=== PATIENT | female | born 1965 | race Caucasian/White ===

== ENCOUNTER 2019-02-10 12:19 | Inpatient (IN) | payer BC ==
--- NOTE | 2019-02-10 13:31 | ED ---
Lower Extremity Injury HPI - General Chief Complaint: Extremity Injury, Lower Stated Complaint: Poss blood clot Time Seen by Provider: 02/10/19 12:33 Source: patient, RN notes reviewed, old records reviewed Mode of arrival: ambulatory Limitations: no limitations - History of Present Illness Initial Comments: Patient is a 53-year-old female presents emergency department today for evaluation with complaints of left leg pain and swelling. Patient reports that she fell proximal 2 weeks ago. At that time she suffered from an abrasion over her left knee, had some subsequent bruising. Call Patient states that she returned home from a flight from [place] after injuring her leg. She is concerned for possibility of a blood clot. She has had a prior PE before due to being on control pills. She is on any blood thinners at this time. She states that she is concerned that she's noticed some swelling spread to the ankle. Patient denies any chest pain or shortness of breath. Patient reports that today and last night she seemed to have increasing pain from behind in the upper thigh. - Related Data Allergies Allergy/AdvReac Type Severity Reaction Status Date / Time albuterol Allergy Unknown Verified 02/10/19 12:30 almond Allergy Unknown Verified 02/10/19 12:30 aspirin Allergy Unknown Verified 02/10/19 12:30 carrot Allergy Unknown Verified 02/10/19 12:30 heller Allergy Unknown Verified 02/10/19 12:30 [place] And Derivatives Allergy Unknown Verified 02/10/19 12:30 [[place]] ibuprofen [From Motrin] Allergy Unknown Verified 02/10/19 12:30 Iodinated Contrast- Oral and Allergy Unknown Verified 02/10/19 12:30 IV Dye Iodine and Iodide Containing Allergy Unknown Verified 02/10/19 12:30 Produc peanut Allergy Unknown Verified 02/10/19 12:30 Penicillins Allergy Unknown Verified 02/10/19 12:30 shellfish derived Allergy Unknown Verified 02/10/19 12:30 soy Allergy Unknown Verified 02/10/19 12:30 Sulfa (Sulfonamide Allergy Unknown Verified 02/10/19 12:30 Antibiotics) sulfite Allergy Unknown Verified 02/10/19 12:30 corn AdvReac Unknown Verified 02/10/19 12:30 Review of Systems ROS Statement: Those systems with pertinent positive or pertinent negative responses have been documented in the HPI. ROS Other: All systems not noted in ROS Statement are negative. Past Medical History Past Medical History: Asthma, GERD/Reflux, Pulmonary Embolus (PE) History of Any Multi-Drug Resistant Organisms: None Reported Past Surgical History: Appendectomy, Tonsillectomy Past Psychological History: No Psychological Hx Reported Smoking Status: Never smoker Past Alcohol Use History: Daily Past Drug Use History: None Reported General Exam - General Exam Comments Initial Comments: 33-year-old female. Alert and oriented. No distress. Limitations: no limitations General appearance: alert, in no apparent distress Head exam: Present: atraumatic, normocephalic, normal inspection Eye exam: Present: normal appearance, PERRL, EOMI. Absent: scleral icterus, conjunctival injection, periorbital swelling ENT exam: Present: normal exam, mucous membranes moist Neck exam: Present: normal inspection Respiratory exam: Present: normal lung sounds bilaterally. Absent: respiratory distress, wheezes, rales, rhonchi, stridor Cardiovascular Exam: Present: regular rate, normal rhythm, normal heart sounds. Absent: systolic murmur, diastolic murmur, rubs, gallop, clicks GI/Abdominal exam: Present: soft, normal bowel sounds. Absent: distended, tenderness, guarding, rebound, rigid Extremities exam: Present: normal inspection, full ROM, normal capillary refill. Absent: tenderness, pedal edema, joint swelling, calf tenderness Left Elbow exam: Present: normal inspection, tenderness Left Knee exam: Present: full ROM. Absent: normal inspection (Patient has an abrasion over the left knee. Covered with bandage. Evidence of ecchymosis extending over the anterior lower leg measuring 3 cm x 4 cm.) Lower Leg exam: Present: normal inspection, full ROM Ankle exam: Present: normal inspection, full ROM, swelling (She has 1+ pitting edema of the left lower leg. Bruising noted over the lateral malleolus.) Neurovascular tendon exam: Present: no vascular compromise Gait: observed and normal Back exam: Present: normal inspection Neurological exam: Present: alert, oriented X3, CN II-XII intact Psychiatric exam: Present: normal affect, normal mood Skin exam: Present: warm, dry, intact, normal color. Absent: rash Course Vital Signs 02/10/19 02/10/19 12:23 15:25 Temperature 97.9 F Pulse Rate 74 89 Respiratory 16 20 Rate Blood Pressure 125/79 116/78 O2 Sat by Pulse 97 99 Oximetry - Reevaluation(s) Reevaluation #1: 02/10/19 14:24 At this time informed Patient that she has positive DVT. She states that she has been having some chest pain and shortness of breath today. This will have to skin the Patient for CT PE. Medical Decision Making - Medical Decision Making Patient's 53-year-old female traveling here from [place] a motor home, with recent travel history from [place] on flight. She complains of left leg pain and swelling. She had a fall 2 weeks ago causing onset of left leg pain. Patient had Doppler ultrasound which is positive for DVT. Patient was reevaluated did state that she was having some occasional shortness of breath and chest pain today. She denies any specific pain at this time. Discussed that there is st ill concern for PE. Patient had an IV established, and CT image her chest is completed. There is evidence of multiple small pulmonary emboli within the right lower lobe. No concern for heart strain. Vital signs are stable. Patient was started on high intensity heparin. Denies any concern for rectal bleeding. Patient case discussed with Dr. Maynard. Patient will be admitted at this time with high intensity heparin. She is traveling back home to [place] after discharge. - Lab Data Result diagrams: 02/10/19 14:57 02/10/19 14:57 Lab Results 02/10/19 02/10/19 02/10/19 Range/Units 14:57 14:57 14:57 WBC 8.9 (3.8-10.6) k/uL RBC 5.00 (3.80-5.40) m/uL Hgb 14.6 (11.4-16.0) gm/dL Hct 45.3 (34.0-46.0) % MCV 90.5 (80.0-100.0) fL MCH 29.3 (25.0-35.0) pg MCHC 32.3 (31.0-37.0) g/dL RDW 13.1 (11.5-15.5) % Plt Count 332 (150-450) k/uL Neutrophils % 54 % Lymphocytes % 34 % Monocytes % 6 % Eosinophils % 3 % Basophils % 1 % Neutrophils # 4.8 (1.3-7.7) k/uL Lymphocytes # 3.0 (1.0-4.8) k/uL Monocytes # 0.6 (0-1.0) k/uL Eosinophils # 0.3 (0-0.7) k/uL Basophils # 0.1 (0-0.2) k/uL PT 9.7 (9.0-12.0) sec INR 0.9 (<1.2) APTT 22.5 (22.0-30.0) sec Sodium 142 (137-145) mmol/L Potassium 4.4 (3.5-5.1) mmol/L Chloride 108 H (98-107) mmol/L Carbon Dioxide 28 (22-30) mmol/L Anion Gap 6 mmol/L BUN 12 (7-17) mg/dL Creatinine 0.94 (0.52-1.04) mg/dL Est GFR (CKD-EPI)AfAm 79 (>60 ml/min/1.73 sqM) Est GFR (CKD-EPI)NonAf 69 (>60 ml/min/1.73 sqM) Glucose 90 (74-99) mg/dL Calcium 9.8 (8.4-10.2) mg/dL Total Bilirubin 0.5 (0.2-1.3) mg/dL AST 38 H (14-36) U/L ALT 34 (9-52) U/L Alkaline Phosphatase 90 (38-126) U/L Troponin I (0.000-0.034) ng/mL Total Protein 7.1 (6.3-8.2) g/dL Albumin 4.1 (3.5-5.0) g/dL 02/10/19 Range/Units 14:57 WBC (3.8-10.6) k/uL RBC (3.80-5.40) m/uL Hgb (11.4-16.0) gm/dL Hct (34.0-46.0) % MCV (80.0-100.0) fL MCH (25.0-35.0) pg MCHC (31.0-37.0) g/dL RDW (11.5-15.5) % Plt Count (150-450) k/uL Neutrophils % % Lymphocytes % % Monocytes % % Eosinophils % % Basophils % % Neutrophils # (1.3-7.7) k/uL Lymphocytes # (1.0-4.8) k/uL Monocytes # (0-1.0) k/uL Eosinophils # (0-0.7) k/uL Basophils # (0-0.2) k/uL PT (9.0-12.0) sec INR (<1.2) APTT (22.0-30.0) sec Sodium (137-145) mmol/L Potassium (3.5-5.1) mmol/L Chloride (98-107) mmol/L Carbon Dioxide (22-30) mmol/L Anion Gap mmol/L BUN (7-17) mg/dL Creatinine (0.52-1.04) mg/dL Est GFR (CKD-EPI)AfAm (>60 ml/min/1.73 sqM) Est GFR (CKD-EPI)NonAf (>60 ml/min/1.73 sqM) Glucose (74-99) mg/dL Calcium (8.4-10.2) mg/dL Total Bilirubin (0.2-1.3) mg/dL AST (14-36) U/L ALT (9-52) U/L Alkaline Phosphatase (38-126) U/L Troponin I <0.012 (0.000-0.034) ng/mL Total Protein (6.3-8.2) g/dL Albumin (3.5-5.0) g/dL - Radiology Data Radiology results: report reviewed This examination is positive for DVT within the posterior tibial veins. Negative tib-fib x-ray. Disposition Clinical Impression: DVT (deep venous thrombosis), Pulmonary embolism Disposition: ADMITTED IP TO THIS [facility] Condition: Stable Is patient prescribed a controlled substance at d/c from ED?: No Referrals: Nonstaff,Physician [Primary Care Provider] - 1-2 days Time of Disposition: 16:47
--- NOTE | 2019-02-10 13:37 | US ---
EXAMINATION TYPE: US venous doppler duplex LE LT DATE OF EXAM: 02/10/2019 1:26 PM COMPARISON: NONE CLINICAL HISTORY: Pain. Pt states left leg pain and swelling, recent plane ride, pt states history of PE, currently not on blood thinners SIDE PERFORMED: Left TECHNIQUE: The lower extremity deep venous system is examined utilizing real time linear array sonog amadeo with graded compression, doppler sonography and color-flow sonography. VESSELS IMAGED: External Iliac Vein (EIV) Common Femoral Vein Deep Femoral Vein Greater Saphenous Vein * Femoral Vein Popliteal Vein Small Saphenous Vein * Proximal Calf Veins (* superficial vessels) Left Leg: Positive for DVT within left PTV near ankle at area of pt's pain and swelling No popliteal fossa lesion is seen. IMPRESSION: THIS EXAMINATION IS POSITIVE FOR DVT WITHIN THE POSTERIOR TIBIAL VEINS.
--- NOTE | 2019-02-10 14:06 | XR ---
EXAMINATION TYPE: XR tibia fibula LT DATE OF EXAM: 02/10/2019 COMPARISON: NONE HISTORY: Pain TECHNIQUE: 2 views FINDINGS: I see no fracture nor dislocation. Knee joint and ankle joint appear anatomic. Soft tissues appear normal. IMPRESSION: Negative left tibia and fibula exam.
[2019-02-10] MEDS ORDERED: FAMOTIDINE 20 MG/2 ML VIAL IV STA (14:22)
[2019-02-10] MEDS ORDERED: diphenhydrAMINE 50 MG/ML 1 ML VIAL IVP STA (14:22)
[2019-02-10] MEDS ORDERED: methylPREDNISolone SOD SUCCI 125 MG/2 ML VIAL IV STA (14:22)
[2019-02-10] MEDS ORDERED: SODIUM CHLORIDE 0.9% 1,000 ML IV ONE (14:23)
[2019-02-10 15:12] LABS: Basophils # (A) 0.1 k/uL (0-0.2); Basophils % (A) 1 %; Eosinophils # (A) 0.3 k/uL (0-0.7); Eosinophils % (A) 3 %; HCT 45.3 % (34.0-46.0); HGB 14.6 gm/dL (11.4-16.0); Lymphocytes % (A) 34 %; MCH 29.3 pg (25.0-35.0); MCHC 32.3 g/dL (31.0-37.0); MCV 90.5 fL (80.0-100.0); Mean Platelet Volume 6.4; Monocytes # (A) 0.6 k/uL (0-1.0); Monocytes % (A) 6 %; Neutrophils # (A) 4.8 k/uL (1.3-7.7); Neutrophils % (A) 54 %; Platelet Count 332 k/uL (150-450); RDW 13.1 % (11.5-15.5); WBC 8.9 k/uL (3.8-10.6)
[2019-02-10] MEDS: SODIUM CHLORIDE 0.9% 1,000 ML IV SCH ×2 (15:20→23:10)
[2019-02-10 15:22] LABS: INR 0.9 (<1.2); Partial Thromboplastin Time 22.5 sec (22.0-30.0); Prothrombin Time 9.7 sec (9.0-12.0)
[2019-02-10 15:29] LABS: Albumin 4.1 g/dL (3.5-5.0); Calcium 9.8 mg/dL (8.4-10.2); Potassium 4.4 mmol/L (3.5-5.1); Total Bilirubin 0.5 mg/dL (0.2-1.3); Total Protein 7.1 g/dL (6.3-8.2)
[2019-02-10] MEDS ORDERED: HEPARIN SODIUM,PORCINE 5,000 UNIT/ML 1 ML VIAL IV PRN (16:27)
[2019-02-10] MEDS ORDERED: HEPARIN SODIUM,PORCINE 10,000 UNIT/ML 1 ML VIAL IV ONE (16:27)
--- NOTE | 2019-02-10 16:35 | CT ---
EXAMINATION TYPE: CT chest angio for PE DATE OF EXAM: 02/10/2019 COMPARISON: None HISTORY: Short of breath CT DLP: mGycm Automated exposure control for dose reduction was used. CONTRAST: CT Chest for pulmonary embolism performed with , patient injected with mL of . The contrast was Isovue 100 mL. There are 3-D post processed images. FINDINGS: The lungs are clear of infiltrate. There is no evidence of a pulmonary mass. There is no pleural effu anahi. There is no mediastinal adenopathy. Thoracic aorta is intact without evidence of aneurysm or di ssection. There is no pericardial effusion. There are filling defects in the right lower lobe pulmonary artery. The bony thorax is intact. Upper abdominal soft tissues are intact. There is small hiatal hernia. IMPRESSION: Multiple small right lower lobe pulmonary emboli. This exam was discussed with the emergency room dario gilbert at 4:20 PM.
[2019-02-10] MEDS ORDERED: NALOXONE 0.4 MG/ML 1 ML VIAL IV PRN (16:51)
[2019-02-10] MEDS ORDERED: oxyCODONE-APAP 5-325MG 1 EACH TAB PO PRN (16:51)
[2019-02-10] MEDS ORDERED: IBUPROFEN 400 MG TAB PO PRN (16:51)
[2019-02-10] MEDS ORDERED: ONDANSETRON 4 MG/2 ML VIAL IVP PRN (16:51)
[2019-02-10] MEDS ORDERED: HYDROcodone/APAP 5-325MG 1 EACH TAB PO PRN (16:51)
[2019-02-10] MEDS ORDERED: ACETAMINOPHEN TAB 325 MG TAB PO PRN (16:51)
[2019-02-10] MEDS: HEPARIN SOD,PORK IN 0.45% NACL 25,000 UNIT in 0.45% NACL 1 250ML.BAG IV SCH (17:00)
[2019-02-10] MEDS ORDERED: LEVALBUTEROL INHALATION PRN (17:36)
[2019-02-10] MEDS ORDERED: ALPRAZolam 0.25 MG TAB PO PRN (17:37)
[2019-02-10] MEDS ORDERED: TEMAZEPAM 15 MG CAP PO PRN (17:37)
[2019-02-10] MEDS: FLUTICASONE 44 MCG INHALER INHALATION SCH (21:04)
[2019-02-10 22:22] VITALS: BMI 32.2
[2019-02-11 06:41] LABS: Basophils % (A) 0 %; Eosinophils % (A) 0 %; HCT 41.2 % (34.0-46.0); HGB 13.1 gm/dL (11.4-16.0); Lymphocytes # (A) 1.7 k/uL (1.0-4.8); Lymphocytes % (A) 12 %; MCH 28.8 pg (25.0-35.0); MCHC 31.7 g/dL (31.0-37.0); MCV 90.9 fL (80.0-100.0); Mean Platelet Volume 6.9; Monocytes # (A) 0.4 k/uL (0-1.0); Monocytes % (A) 3 %; Neutrophils # (A) 11.7 k/uL (1.3-7.7); Neutrophils % (A) 84 %; Platelet Count 292 k/uL (150-450); RBC 4.54 m/uL (3.80-5.40); RDW 14.1 % (11.5-15.5); WBC 13.9 k/uL (3.8-10.6)
--- NOTE | 2019-02-11 06:45 | HP ---
HISTORY AND PHYSICAL DATE OF SERVICE: 02/10/2019 CHIEF COMPLAINT: Shortness of breath and pulmonary embolism. HISTORY OF PRESENT ILLNESS: This 53-year-old woman with a past medical history of multiple medical problems including history of asthma, GERD, pulmonary embolism, history of right ovarian surgery, being followed by primary physician in the [place] area actually was attending a wedding in [facility]. The patient was noted to have left leg pain and swelling and the patient also had some shortness of breath. The patient came to [facility] and was admitted for further evaluation and treatment. Of note, the patient was in [place] about 2 weeks ago and fell at the [place] and had abrasion below the left knee, which is rather improving according to her. Patient had an 11 hour flight home from [place] during that time. Currently the patient drove to [place] from [place] taking 2 days. The patient was admitted for further evaluation and treatment and the ER evaluation showed normal CBC. However, EKG was done which showed no acute abnormality and the patient had venous Doppler which showed DVT of the posterior tibial vein on the left leg and a chest CT was also done which showed multiple small right lower lobe pulmonary emboli as well. Patient admitted for further evaluation and treatment. Patient admitted after starting heparin. There is no history of fever, rigors. No history of headache, loss of consciousness, seizures. PAST MEDICAL HISTORY: History of asthma, GERD, pulmonary embolism, hypothyroidism, right ovarian tumor. MEDICATION: Home medications are: 1. Xopenex HFA 1 puff q.6h p.r.n. 2. Prilosec OTC 20 mg. 3. Vitamin D3 2000 daily. 4. Zyrtec 10 mg daily. 5. QVAR 40 mcg 2 puffs b.i.d. ALLERGIES: ALBUTEROL, ALMOND, ASPIRIN, CITRUS, IBUPROFEN, IODINATED CONTRAST DYES, PEANUT, PENICILLIN, SHELLFISH, SOY, SULFA, SULFITE CORN. FAMILY HISTORY: No history of heart disease or strokes in the family. Both parents had blood clots, but possibly after cancer diagnosis. SOCIAL HISTORY: No history of smoking. No history of alcohol intake. REVIEW OF SYSTEMS: ENT: No diminished vision. No diminished hearing. CARDIOVASCULAR system: As mentioned earlier. RESPIRATORY: As mentioned earlier. GI no nausea or vomiting. no dysuria. NERVOUS SYSTEM: No numbness or weakness. ALLERGY/IMMUNOLOGY: No history of asthma or hayfever. MUSCULOSKELETAL: As mentioned earlier. HEMATOLOGY/ONCOLOGY: As mention earlier. ENDOCRINE: No history of diabetes or hypothyroidism. CONSTITUTIONAL: As mentioned earlier. DERMATOLOGY: Negative. RHEUMATOLOGY negative. PSYCHIATRY as mentioned earlier. PHYSICAL EXAMINATION: GENERAL: Alert and oriented x3. VITAL SIGNS: Pulse is 75, blood pressure 120/72, respiration 18, temperature 98.2, pulse ox 98% on room air. HEENT is conjunctivae normal. Oral mucosa moist. NECK is no jugular venous distention. No carotid bruit. No lymph node enlargement. CARDIOVASCULAR system: S1, S2. No S3, no S4. RESPIRATORY: Breath sounds diminished in the bases. A few scattered rhonchi. No crackles. ABDOMEN: Soft, obese, nontender. No mass palpable. LEGS: Left leg swelling and edema present. Minimal tenderness also in the calf area present. Also there is an abrasion below the left knee which is healing at this time. NERVOUS SYSTEM: Higher functions as mentioned earlier. Moves all 4 limbs. No focal motor or sensory deficits. LYMPHATICS: No lymph nodes palpable in the neck, axillae or groin. SKIN as mentioned. JOINTS: No active deforming arthropathy. LABS: At this time, WBC 8.2, hemoglobin 14.6. APTT less than 200 otherwise. Chest x-ray personally reviewed. EKG noted. Otherwise CTA and tibia x-ray was also noted. ASSESSMENT: 1. Acute deep vein thrombosis of the left leg, with acute pulmonary embolus on the right side on IV heparin. 2. History of previous pulmonary embolism. 3. History of asthma. 4. Gastroesophageal reflux disease. 5. History of hypothyroidism. 6. History of right ovarian surgery. 7. Appendectomy. 8. Tonsillectomy. 9. Heparin monitoring. RECOMMENDATIONS AND DISCUSSION: This 53-year-old woman who presented with multiple complex medical issues, we will monitor the patient closely. Continue the current medications, continue symptomatic treatment. We will initiate IV heparin. Otherwise, I would also recommend resume the home medications. Symptomatic treatment will be provided. We will also obtain Hematology/Oncology and Pulmonary consultations. The prognosis guarded because of multiple complex medical issues. Further recommendations to follow. The patient has taken Coumadin previously. The patient also had some insurance issues as well. I would recommend the case supervisor to look into the possibility of anticoagulants such as either Xarelto or Eliquis as an outpatient medication. The patient might be a candidate for long-term anticoagulation because of recurrence of the DVTs and possibly some family history also. The prognosis is guarded because of multiple complex medical issues. Further recommendations to follow. Discussed with the patient and staff, understands and agrees. MARISSA / BINN: [id number] /
--- NOTE | 2019-02-11 06:47 | XR ---
EXAMINATION TYPE: XR chest 1V portable DATE OF EXAM: 02/11/2019 HISTORY: chf. REFERENCE: NONE. FINDINGS: Heart size upper limits of normal. The lungs appear clear. There is mild vascular congestio n without loly edema. There is minimal blunting of both CP angles and I cannot exclude small effusio ns. IMPRESSION: 1. BORDERLINE CARDIOMEGALY. 2. VASCULAR CONGESTION. 3. I COULD NOT EXCLUDE SMALL, BILATERAL EFFUSIONS.
[2019-02-11 07:25] LABS: African American GFR (CKD) >90 (>60 ml/min/1.73 sqM); Anion Gap 6 mmol/L; Blood Urea Nitrogen 13 mg/dL (7-17); Calcium 9.2 mg/dL (8.4-10.2); Carbon Dioxide 24 mmol/L (22-30); Chloride 111 mmol/L (98-107); Glucose 137 mg/dL (74-99); Potassium 4.4 mmol/L (3.5-5.1); Sodium 141 mmol/L (137-145)
[2019-02-11] MEDS: FLUTICASONE 44 MCG INHALER INHALATION SCH ×2 (07:44→19:26)
[2019-02-11] MEDS: SODIUM CHLORIDE 0.9% 1,000 ML IV SCH (08:01)
[2019-02-11] MEDS: CHOLECALCIFEROL 1,000 UNIT TAB PO SCH (08:02)
[2019-02-11] MEDS: LORATADINE 10 MG TAB PO SCH (08:03)
[2019-02-11] MEDS: HEPARIN SOD,PORK IN 0.45% NACL 25,000 UNIT in 0.45% NACL 1 250ML.BAG IV SCH ×2 (08:11→20:09)
[2019-02-11] MEDS ORDERED: NON-FORMULARY DRUG (Omeprazole Magnesium [Prilosec Otc] 20 MG) PO SCH (09:00)
[2019-02-11] MEDS ORDERED: PANTOPRAZOLE 40 MG/10 ML VIAL IV SCH (09:00)
--- NOTE | 2019-02-11 14:33 | P.CONS ---
History of Present Illness - Reason for Consult Consult date: 02/11/19 Recurrent DVT and PE - History of Present Illness The patient is a 53-year-old white female, with a complicated past medical history from the hematology standpoint. In 2006, the patient had a left lower extremity DVT and PE. The patient states that she had no risk factors or provoking events, other than use of hormonal contraception. She states that she was on a "low-dose preparation". It appears that this is felt to be the provoking factors (appropriately) and she was treated with anticoagulation with warfarin for about 9 months. Initially the plan was to stop treatment as 6 months, but repeat imaging had shown some residual clot due to which she received an additional few months of treatment. States that she did have repeat risks assessment with imaging and d-dimer that showed resolution of the clot and normal labs, according to her. She was not placed on any aspirin subsequently, as apparently she had had a possible ALLERGIC reaction to aspirin many years prior. The patient thinks that she did have a hypercoagulable workup done that was negative, but has no records at this time. She did not have any family history. The patient had been visiting [facility], when she fell and injured her left knee. She had significant swelling of the knee, but no fracture or casting. He subsequently few 11 hours, back home to [place]. She then drove from their dose hernia to attend a wedding. She states that she did not use her compression stockings that she normally uses for traveling, because of the left knee swelling. The patient then developed fairly acute onset of shortness of breath, with chest pain, worsened by inspiration. She also noted increasing pain in her left ankle. She therefore came into the emergency room here with CT angiogram revealing right lower lobe pulmonary emboli, and venous Doppler positive for DVT in the left posterior tibial veins. She was admitted and started on IV heparin. Consult was placed for further evaluation and recommendations. The patient did not use any hormonal contraception after her event in 2006, or any hormonal supplementation after menopause. She does have a history of upper abdominal pain, right greater than left, chronically for about 2+ years and states that she was diagnosed with a fatty liver and possibly gallbladder inflammation in 2017. Review of Systems Constitutional: Reports weakness Eyes: denies blurred vision, denies pain Ears: deny: decreased hearing, ear discharge, earache, tinnitus Ears, nose, mouth and throat: Denies headache, Denies sore throat Cardiovascular: Reports chest pain, Reports dyspnea on exertion, Reports edema Respiratory: Reports dyspnea, Reports pain on inspiration Gastrointestinal: Reports abdominal pain, Reports belching Genitourinary: Denies dysuria, Denies hematuria Menstruation: Reports postmenopausal Musculoskeletal: Reports as per HPI (Chronic left lower extremity swelling, with increased swelling currently.) Musculoskeletal: left: ankle pain, ankle swelling, knee pain, knee swelling Integumentary: Denies pruritus, Denies rash Neurological: Denies numbness, Denies weakness Psychiatric: Denies anxiety, Denies depression Endocrine: Denies fatigue, Denies weight change Hematologic/Lymphatic: Reports as per HPI, Reports thrombophilia Past Medical History Past Medical History: Asthma, GERD/Reflux, Pulmonary Embolus (PE), Thyroid Disorder Additional Past Medical History / Comment(s): right ovarary removal, thyroid nodules. History of Any Multi-Drug Resistant Organisms: None Reported Past Surgical History: Appendectomy, Tonsillectomy Past Psychological History: No Psychological Hx Reported Smoking Status: Never smoker Past Alcohol Use History: Daily Past Drug Use History: None Reported Medications and Allergies Home Medications Medication Instructions Recorded Confirmed Type Beclomethasone Dipropionate [Qvar 2 puff INHALATION RT-BID 02/10/19 02/10/19 History 40 mcg Redihaler] Cetirizine HCl [Zyrtec] 10 mg PO DAILY 02/10/19 02/10/19 History Cholecalciferol (Vitamin D3) 2,000 unit PO DAILY 02/10/19 02/10/19 History [Vitamin D3] Levalbuterol Hfa Inhaler [Xopenex 1 puff INHALATION Q6HR PRN 02/10/19 02/10/19 History Hfa Inhaler] Omeprazole Magnesium [PriLOSEC OTC] 20 mg PO DAILY 02/10/19 02/10/19 History Allergies Allergy/AdvReac Type Severity Reaction Status Date / Time albuterol Allergy Unknown Verified 02/10/19 17:28 almond Allergy Unknown Verified 02/10/19 17:28 aspirin Allergy Unknown Verified 02/10/19 17:28 carrot Allergy Unknown Verified 02/10/19 17:28 heller Allergy Unknown Verified 02/10/19 17:28 [place] And Derivatives Allergy Unknown Verified 02/10/19 17:28 [[place]] ibuprofen [From Motrin] Allergy Unknown Verified 02/10/19 17:28 Iodinated Contrast- Oral and Allergy Unknown Verified 02/10/19 17:28 IV Dye Iodine and Iodide Containing Allergy Unknown Verified 02/10/19 17:28 Produc peanut Allergy Unknown Verified 02/10/19 17:28 Penicillins Allergy Unknown Verified 02/10/19 17:28 shellfish derived Allergy Unknown Verified 02/10/19 17:28 soy Allergy Unknown Verified 02/10/19 17:28 Sulfa (Sulfonamide Allergy Unknown Verified 02/10/19 17:28 Antibiotics) sulfite Allergy Unknown Verified 02/10/19 17:28 corn AdvReac Unknown Verified 02/10/19 17:28 Physical Exam Vitals: Vital Signs Temp Pulse Pulse Resp BP BP Pulse Ox 02/11/19 11:24 98.1 F 74 18 120/67 97 02/11/19 10:51 18 02/11/19 08:00 98 F 75 18 108/70 97 02/11/19 04:00 98.3 F 70 16 109/64 95 02/11/19 03:28 75 18 02/11/19 00:00 98.1 F 75 18 106/59 95 02/10/19 20:00 97.9 F 86 16 123/68 97 02/10/19 18:25 98.2 F 75 18 125/78 99 02/10/19 18:22 97.9 F 86 16 123/68 97 02/10/19 17:02 71 18 131/81 98 02/10/19 15:25 89 20 116/78 99 Intake and Output 02/10/19 02/11/19 02/11/19 22:59 06:59 14:59 Intake Total 1393.951 95.679 Balance 1393.951 95.679 Intake: Intake, IV Titration 913.951 95.679 Amount Heparin Sod,Pork in 0.45% 113.951 95.679 NaCl 25,000 unit In 0.45 % NaCl 1 250ml.bag @ 18 UNITS/KG/HR 17.309 mls/hr IV .[id number] MILAGROS Rx#: [id number] Sodium Chloride 0.9% 1, 800 000 ml @ 100 mls/hr IV . Q10H MILAGROS Rx#:[id number] Oral 480 Other: # Voids 1 Weight 96.3 kg - Constitutional General appearance: no acute distress - EENT Eyes: EOMI, PERRLA ENT: hearing grossly normal, normal oropharynx - Neck Neck: no lymphadenopathy Thyroid: bilateral: normal size - Respiratory Respiratory: bilateral: CTA - Cardiovascular Rhythm: regular Heart sounds: normal: S1, S2 - Gastrointestinal General gastrointestinal: normal bowel sounds, soft - Integumentary Integumentary: normal - Neurologic Neurologic: CNII-XII intact - Musculoskeletal Musculoskeletal: strength equal bilaterally - Psychiatric Psychiatric: A&O x's 3, appropriate affect Results CBC & Chem 7: 02/11/19 06:10 02/11/19 06:10 Labs: Abnormal Lab Results - Last 24 Hours (Table) 02/10/19 02/10/19 02/11/19 Range/Units 10:35 14:57 06:10 WBC 13.9 H (3.8-10.6) k/uL Neutrophils # 11.7 H (1.3-7.7) k/uL APTT >200.0 H* (22.0-30.0) sec Chloride 108 H (98-107) mmol/L Glucose (74-99) mg/dL AST 38 H (14-36) U/L 02/11/19 02/11/19 Range/Units 06:10 06:10 WBC (3.8-10.6) k/uL Neutrophils # (1.3-7.7) k/uL APTT 140.3 H* (22.0-30.0) sec Chloride 111 H (98-107) mmol/L Glucose 137 H (74-99) mg/dL AST (14-36) U/L Comments: Tibia - fibula x-ray report reviewed Chest x-ray: report reviewed CT scan - chest: report reviewed Venous US: report reviewed Assessment and Plan (1) VTE (venous thromboembolism) Narrative/Plan: The patient is presenting with a second episode of venous thrombosis embolism, with left lower extremity DVT and PE. The previous event was apparently provoked by oral contraceptive use and the patient was treated appropriately with limited anticoagulation, after adequate risk assessment, or into the available history. The patient's current event is also a provoked event. She would therefore be a candidate for limited anticoagulation again. Agree with IV heparin in the acute setting, with change to orals (1 of the direct oral anticoagulants if covered) when the patient is symptomatically stable. I would recommend continuation of anticoagulation for about a year as this is her second event. At that time , depending on her risk assessment with repeat imaging studies and d-dimer, anticoagulation can be discontinued if appropriate and the patient be switched to aspirin, if she is able to tolerate it. I would actually recommend doing repeat imaging in about 3-4 months just to get a new baseline. Patient is going to be traveling back to [place], and was advised to establish with a lettuce cutter there. Even though her events were provoked, recurrent VTE is an indication for hypercoagulable testing. The patient thinks that she did have testing done in 2006 and was told that was negative. She will attempts to find those records. If these are not available, and it is not certain that testing was done, she can have repeat testing done as an outpatient. She can follow up with hematology in [place] in that regard. She was also advised that once she is adequately anticoagulated, there is no contraindication to normal mobility. Current Visit: Yes Status: Acute Code(s): I82.90 - ACUTE EMBOLISM AND THROMBOSIS OF UNSPECIFIED VEIN SNOMED Code(s): 006858920 (2) Abdominal pain Narrative/Plan: The patient complains of chronic abdominal discomfort, more in the right upper quadrant. She was told previously that she had a fatty liver but has had no repeat imaging in the past 2 years. Ultrasound of the liver/gallbladder will be repeated Current Visit: Yes Status: Acute Code(s): R10.9 - UNSPECIFIED ABDOMINAL PAIN SNOMED Code(s): 83924016 Plan: The case discussed with the admitting service in detail
[2019-02-11] MEDS ORDERED: FUROSEMIDE 10 MG/ML 4 ML VIAL IV STA (15:03)
--- NOTE | 2019-02-11 19:33 | PN ---
PROGRESS NOTE DATE OF SERVICE: 02/11/2019 This 53-year-old woman was admitted shortness of breath and pulmonary embolism, also had history of DVT also. The patient also had a previous history of pulmonary embolism. The patient complains of shortness of breath. Patient on IV heparin. Dr. Rodriguez is following the patient closely. The most recent chest x-ray done today showed borderline cardiomegaly, some vascular congestion and could not exclude some small pleural effusion. Patient being closely monitored. PAST MEDICAL HISTORY: Reviewed. REVIEW OF SYSTEMS: CARDIOVASCULAR: No chest or palpitations. RESPIRATORY: As mentioned earlier. GI no nausea or vomiting. no dysuria. NERVOUS SYSTEM: No numbness or weakness. CURRENT MEDICATIONS ARE: Current medications are reviewed and include: 1. Tylenol 650 q.6 p.r.n. 2. [place] 5 mg q.4 hours. 3. Xanax 0.5 t.i.d. 4. Vitamin D3. 5. Lovenox. 6. Heparin. 7. Claritin. 8. Narcan. 9. Percocet. 10.Protonix. 11.Restoril. PHYSICAL EXAM: Patient is alert and oriented times three. Pulse 74. Blood pressure 120/60, respiration 18, temperature 98.2, pulse ox 97% on room air. HEENT are conjunctivae normal. NECK: No jugular venous distention. CARDIOVASCULAR: S1, S2. RESPIRATION: Breath sounds diminished in the bases. A few scattered rhonchi and crackles. ABDOMEN: Soft, obese, nontender. LEGS are no edema, no swelling. CENTRAL NERVOUS SYSTEM: No focal deficits. LAB STUDIES: WBC 13.2, hemoglobin 13.1, sodium 140, potassium 4.4. ASSESSMENT: 1. Acute deep vein thrombosis of the left leg with acute pulmonary embolism on the right side on IV heparin. 2. History of previous pulmonary embolus. 3. History of asthma. 4. Gastroesophageal reflux disease. 5. History of hypothyroidism. 6. History of right ovarian surgery. 7. Appendectomy. 8. Tonsillectomy. 9. Heparin monitoring. RECOMMENDATIONS AND DISCUSSION: In this 53-year-old woman who presented with multiple complex medical issues, we will monitor the patient closely, continue the current medications, symptomatic treatment. Otherwise, at this time, I recommend continue with IV heparin. I would also recommend a 2D echo with Doppler and as well as a BNP and cardiology consultation and a single dose of Lasix. Also cut down the IV fluids. Prognosis guarded because of multiple complex medical issues. Further recommendations to follow. MMODL / IJN: [id number] /
[2019-02-12] MEDS: PANTOPRAZOLE 40 MG TABLET PO SCH (06:02)
[2019-02-12 07:30] LABS: Calcium 9.2 mg/dL (8.4-10.2); Potassium 4.5 mmol/L (3.5-5.1)
--- NOTE | 2019-02-12 08:12 | US ---
EXAMINATION TYPE: US liver DATE OF EXAM: 02/12/2019 COMPARISON: NONE CLINICAL HISTORY: 53-year-old female with abdominal pain, recent PE's and DVT TECHNIQUE: Multiple sonographic images of the right upper quadrant are obtained. FINDINGS: EXAM MEASUREMENTS: Liver Length: 16.4 cm Gallbladder Wall: 0.3 cm CBD: 0.4 cm Right Kidney: 9.6 x 3.3 x 4.0 cm Pancreas: wnl Liver: Increased echogenicity with heterogeneous echotexture. Gallbladder: There is comet tail artifact seen on anterior wall. No abnormal gallbladder distention or shadowing calculi. No surrounding fluid. Evidence for sonographic Dhillon's sign: no CBD: wnl Right Kidney: wnl IMPRESSION: 1. Slightly echogenic and heterogeneous appearance to the liver suggests nonspecific hepatocellular d isease or fatty infiltration. Clinically correlate. 2. Some comet tail artifact along the gallbladder wall suggesting adenomyomatosis. No cholelithiasis or ancillary findings of acute cholecystitis.
[2019-02-12] MEDS: LORATADINE 10 MG TAB PO SCH (08:23)
[2019-02-12] MEDS: CHOLECALCIFEROL 1,000 UNIT TAB PO SCH (08:24)
[2019-02-12] MEDS: FLUTICASONE 44 MCG INHALER INHALATION SCH ×2 (08:27→20:28)
--- NOTE | 2019-02-12 09:21 | P.CRDCN ---
History of Present Illness Consult date: 02/12/19 Requesting physician: Fifi Mcginnis Chief complaint: Left leg pain and shortness of breath History of present illness: This is a pleasant 53-year-old female with history of prior pulmonary embolism several years ago, at which time she was on control pills, she does have a history of asthma, denies any hypertension, no diabetes, no hyperlipidemia, she's a nonsmoker. She recently had taken a trip to [facility], and while there experienced a fall with an injury to her left leg. After arrival home she noticed increased swelling in that leg as well as increased areas of ecchymosis, then became somewhat short of breath, she came to the hospital then for further evaluation and treatment. At tibia fibula x-ray was negative. A venous duplex study was performed of the left lower extremity which was positive for DVT within the posterior tibial veins. CTA of the chest showed multiple small right lower lobe pulmonary embolism. Chest x-ray showed borderline cardiomegaly, vascular congestion, small bilateral effusions. An ultrasound of the liver was performed which showed slightly echogenic and heterogeneous appearance to the liver suggesting nonspecific hepatocellular disease or fatty infiltration, some artifact along the gallbladder wall suggesting adenotome myelomatosis. No cholelithiasis or acute cholecystitis noted. EKG shows normal sinus rhythm with no acute changes. Blood pressure 110/70 with a heart rate in the 70s, 97% on room air. White blood cell count 8.9 on admission, 13.9 this morning, hemoglobin 13.1, platelet count 292. Sodium 144, potassium 4.5, BUN 18 and creatinine 1.0. Troponins were negative 3. Past Medical History Past Medical History: Asthma, GERD/Reflux, Pulmonary Embolus (PE), Thyroid Disorder Additional Past Medical History / Comment(s): right ovarary removal, thyroid nodules. History of Any Multi-Drug Resistant Organisms: None Reported Past Surgical History: Appendectomy, Tonsillectomy Past Psychological History: No Psychological Hx Reported Smoking Status: Never smoker Past Alcohol Use History: Daily Past Drug Use History: None Reported Medications and Allergies Home Medications Medication Instructions Recorded Confirmed Type Beclomethasone Dipropionate [Qvar 2 puff INHALATION RT-BID 02/10/19 02/10/19 History 40 mcg Redihaler] Cetirizine HCl [Zyrtec] 10 mg PO DAILY 02/10/19 02/10/19 History Cholecalciferol (Vitamin D3) 2,000 unit PO DAILY 02/10/19 02/10/19 History [Vitamin D3] Levalbuterol Hfa Inhaler [Xopenex 1 puff INHALATION Q6HR PRN 02/10/19 02/10/19 History Hfa Inhaler] Omeprazole Magnesium [PriLOSEC OTC] 20 mg PO DAILY 02/10/19 02/10/19 History Allergies Allergy/AdvReac Type Severity Reaction Status Date / Time albuterol Allergy Unknown Verified 02/10/19 17:28 almond Allergy Unknown Verified 02/10/19 17:28 aspirin Allergy Unknown Verified 02/10/19 17:28 carrot Allergy Unknown Verified 02/10/19 17:28 heller Allergy Unknown Verified 02/10/19 17:28 [place] And Derivatives Allergy Unknown Verified 02/10/19 17:28 [[place]] ibuprofen [From Motrin] Allergy Unknown Verified 02/10/19 17:28 Iodinated Contrast- Oral and Allergy Unknown Verified 02/10/19 17:28 IV Dye Iodine and Iodide Containing Allergy Unknown Verified 02/10/19 17:28 Produc peanut Allergy Unknown Verified 02/10/19 17:28 Penicillins Allergy Unknown Verified 02/10/19 17:28 shellfish derived Allergy Unknown Verified 02/10/19 17:28 soy Allergy Unknown Verified 02/10/19 17:28 Sulfa (Sulfonamide Allergy Unknown Verified 02/10/19 17:28 Antibiotics) sulfite Allergy Unknown Verified 02/10/19 17:28 corn AdvReac Unknown Verified 02/10/19 17:28 Physical Exam Vitals: Vital Signs Temp Pulse Resp BP Pulse Ox 02/12/19 08:00 97.7 F 71 18 111/71 97 02/12/19 03:40 98.1 F 73 16 104/64 98 02/12/19 03:39 70 16 02/12/19 00:00 98.6 F 70 16 111/64 99 02/11/19 20:00 98.2 F 77 16 110/68 98 02/11/19 16:00 98.6 F 69 18 116/69 97 02/11/19 11:24 98.1 F 74 18 120/67 97 02/11/19 10:51 18 Intake and Output 02/11/19 02/12/19 02/12/19 22:59 06:59 14:59 Intake Total 136.659 137.85 Output Total 1700 Balance -1563.341 137.85 Intake: Intake, IV Titration 136.659 137.85 Amount Heparin Sod,Pork in 0.45% 136.659 137.85 NaCl 25,000 unit In 0.45 % NaCl 1 250ml.bag @ 18 UNITS/KG/HR 17.309 mls/hr IV .[id number] MILAGROS Rx#: [id number] Output: Urine 1700 Other: # Voids 2 1 Weight 97.5 kg PHYSICAL EXAMINATION: GENERAL: 53-year-old female in no acute distress at the time of my examination HEENT: Head is atraumatic, normocephalic. Pupils equal, round. Sclera anicteric. Conjunctiva are clear. Mucous membranes of the mouth are moist. Neck is supple. There is no elevated jugular venous pressure. No carotid bruit is heard. HEART EXAMINATION: Heart S1, S2 normal. No murmur or gallop heard. CHEST EXAMINATION: Lungs are clear to auscultation and precussion. No chest wall tenderness is noted on palpation or with deep breathing. ABDOMEN: Soft, nontender. Bowel sounds are heard. No organomegaly noted. EXTREMITIES:[ 2+ peripheral pulses with trace edema noted to the left lower extremity with evidence of ecchymosis at the ankle area and up below the knee on the left leg NEUROLOGIC patient is awake, alert and oriented 3 . . Results 02/11/19 06:10 02/12/19 06:01 Cardiac Enzymes 02/11/19 Range/Units 15:13 Troponin I <0.012 (0.000-0.034) ng/mL Coagulation 02/11/19 02/12/19 Range/Units 14:14 06:01 APTT 67.4 H 80.2 H (22.0-30.0) sec Comprehensive Metabolic Panel 02/12/19 Range/Units 06:01 Sodium 144 (137-145) mmol/L Potassium 4.5 (3.5-5.1) mmol/L Chloride 109 H (98-107) mmol/L Carbon Dioxide 31 H (22-30) mmol/L BUN 18 H (7-17) mg/dL Creatinine 1.03 (0.52-1.04) mg/dL Glucose 92 (74-99) mg/dL Calcium 9.2 (8.4-10.2) mg/dL Current Medications Generic Name Dose Route Start Last Admin Trade Name Freq PRN Reason Stop Dose Admin Acetaminophen 650 mg 02/10/19 16:51 Tylenol Tab PO Q6HR PRN Mild Pain or Fever > 100.5 Hydrocodone Bitart/Acetaminophen 1 each 02/10/19 16:51 [place] 5-325 PO Q4HR PRN Moderate Pain Alprazolam 0.25 mg 02/10/19 17:37 Xanax PO TID PRN Anxiety Cholecalciferol 2,000 unit 02/11/19 09:00 02/12/19 08:24 Vitamin D3 (25 Mcg = 1000 Iu) PO Not Given DAILY [facility] Fluticasone Propionate 1 puff 02/10/19 20:00 02/12/19 08:27 Flovent 44 Mcg Inhaler INHALATION Not Given RT-BID [facility] Heparin Sodium (Porcine) 0 unit 02/10/19 16:27 Heparin IV PER PROTOCOL PRN Low PTT Protocol Heparin Sodium/Sodium Chloride 250 mls @ 17.309 mls/hr 02/10/19 16:45 02/12/19 08:13 25,000 unit/ Sodium Chloride IV 9.88 units/kg/hr .[id number] MILAGROS 9.501 mls/hr Titration Protocol 18 UNITS/KG/HR Loratadine 10 mg 02/11/19 09:00 02/12/19 08:23 Claritin PO Not Given DAILY [facility] Naloxone HCl 0.2 mg 02/10/19 16:51 Narcan IV Q2M PRN Opioid Reversal Non-Formulary Medication 1 puff 02/10/19 17:36 Levalbuterol Hfa Inhaler INHALATION RT-Q6H PRN Shortness Of Breath Ondansetron HCl 4 mg 02/10/19 16:51 Zofran IVP Q8HR PRN Nausea And Vomiting Oxycodone/Acetaminophen 1 each 02/10/19 16:51 Percocet 5-325 PO Q4HR PRN Severe Pain Pantoprazole Sodium 40 mg 02/12/19 07:30 02/12/19 06:02 Protonix PO 40 mg [id number] MILAGROS Administration Temazepam 15 mg 02/10/19 17:37 Restoril PO HS PRN Insomnia Intake and Output 02/11/19 02/12/1919 22:59 06:59 14:59 Intake Total 136.659 137.85 Output Total 1700 Balance -1563.341 137.85 Intake: Intake, IV Titration 136.659 137.85 Amount Heparin Sod,Pork in 0.45% 136.659 137.85 NaCl 25,000 unit In 0.45 % NaCl 1 250ml.bag @ 18 UNITS/KG/HR 17.309 mls/hr IV .[id number] MILAGROS Rx#: [id number] Output: Urine 1700 Other: # Voids 2 1 Weight 97.5 kg 02/11/19 06:10 02/12/19 06:01 EKG Interpretations (text) EKG shows normal sinus rhythm with no acute changes. Assessment and Plan Plan: Assessment and plan #1 pulmonary embolism with evidence of DVT in the left lower extremity, provoked. #2 history of prior pulmonary embolism #3 asthma Plan We will obtain an echocardiogram with Doppler study. Hematology has also been consulted because of recurrent PTE, hypercoagulable testing is being performed. Patient is currently on IV heparin, and will require anticoagulation as physically for DVT and PE. DNP note has been reviewed, I agree with a documented findings and plan of care. Patient was seen and examined.
[2019-02-12 10:03] LABS: Basophils # (A) 0.1 k/uL (0-0.2); Basophils % (A) 1 %; Eosinophils # (A) 0.1 k/uL (0-0.7); Eosinophils % (A) 1 %; HCT 43.6 % (34.0-46.0); HGB 13.7 gm/dL (11.4-16.0); Lymphocytes # (A) 4.8 k/uL (1.0-4.8); Lymphocytes % (A) 41 %; MCH 29.4 pg (25.0-35.0); MCHC 31.5 g/dL (31.0-37.0); MCV 93.3 fL (80.0-100.0); Mean Platelet Volume 7.1; Monocytes # (A) 0.6 k/uL (0-1.0); Monocytes % (A) 5 %; Neutrophils % (A) 51 %; Platelet Count 267 k/uL (150-450); RBC 4.67 m/uL (3.80-5.40); RDW 13.6 % (11.5-15.5); WBC 11.8 k/uL (3.8-10.6)
--- NOTE | 2019-02-12 10:25 | ECHOF ---
Referral Reason:chf MEASUREMENTS -------- HEIGHT: 172.7 cm WEIGHT: 97.1 kg BP: 118/76 RVIDd: 2.3 cm (< 3.3) IVSd: 0.9 cm (0.6 - 1.1) LVIDd: 4.3 cm (3.9 - 5.3) LVPWd: 1.0 cm (0.6 - 1.1) IVSs: 1.7 cm LVIDs: 2.5 cm LVPWs: 1.5 cm Ao Diam: 2.9 cm (2.0 - 3.7) AV Cusp: 1.9 cm (1.5 - 2.6) LA Diam: 3.0 cm (2.7 - 3.8) MV EXCURSION: 19.436 mm (> 18.000) MV EF SLOPE: 127 mm/s (70 - 150) EPSS: 0.4 cm MV E Enrico: 1.09 m/s MV DecT: 253 ms MV A Enrico: 0.56 m/s MV E/A Ratio: 1.96 RAP: 5.00 mmHg RVSP: 21.66 mmHg FINDINGS -------- Sinus rhythm. This was a technically good study. The left ventricular size is normal. Left ventricular wall thickness is normal. Overall left vent ricular systolic function is normal with, an EF between 60 - 65 %. The right ventricle is normal in size. The left atrium is normal in size. The right atrial size is normal. Interatrial and interventricular septum intact. The aortic valve is trileaflet and appears structurally normal. The mitral valve is normal. There is trace mitral regurgitation. The tricuspid valve appears structurally normal. Mild tricuspid regurgitation present. There is n o evidence of pulmonary hypertension. The right ventricular systolic pressure, as measured by Doppl er, is 21.66mmHg. There is no pulmonic regurgitation present. The aortic root size is normal. Normal inferior vena cava with normal inspiratory collapse consistent with estimated right atrial pre ssure of 5 mmHg. There is no pericardial effusion. CONCLUSIONS -------- 1. Sinus rhythm. 2. This was a technically good study. 3. The left ventricular size is normal. 4. Left ventricular wall thickness is normal. 5. Overall left ventricular systolic function is normal with, an EF between 60 - 65 %. 6. The right ventricle is normal in size. 7. The left atrium is normal in size. 8. The right atrial size is normal. 9. Interatrial and interventricular septum intact. 10. The aortic valve is trileaflet and appears structurally normal. 11. The mitral valve is normal. 12. There is trace mitral regurgitation. 13. The tricuspid valve appears structurally normal. 14. Mild tricuspid regurgitation present. 15. There is no evidence of pulmonary hypertension. 16. The right ventricular systolic pressure, as measured by Doppler, is 21.66mmHg. 17. There is no pulmonic regurgitation present. 18. The aortic root size is normal. 19. Normal inferior vena cava with normal inspiratory collapse consistent with estimated right atrial pressure of 5 mmHg. 20. There is no pericardial effusion. SHOT HOLE DRILLER: Emmanuelle Hsu RDCS
[2019-02-12] MEDS: APIXABAN 5 MG TAB PO SCH ×2 (12:49→20:05)
--- NOTE | 2019-02-12 14:52 | P.PN ---
Subjective This is a pleasant 53 years old female with past medical history of provoked DVT and pulmonary embolism, asthma, GERD, thyroid nodule, presents with signs and symptoms of left leg deep venous thrombosis and pulmonary embolism. Patient was started on heparin drip, she has been evaluated by hematology and cardiology team for evidence of pulmonary congestion on chest x-ray. Echocardiogram was ordered. Patient is hemodynamically stable. Mild leukocytosis is improving from 13.9 down to 11.8 gait. Patient will be started on oral anticoagulation per hematology recommendation. Her co-pay for iVengo is $20 per month, confirmed with social work faculty member and patient informed and she agrees with it. Patient states that she has chronic discomfort in her right upper quadrant for 2 years, Liver ultrasound: Fatty infiltration of the liver. Echo showing ejection fraction of 60-65% with no pericardial effusion. Objective - Vital Signs Vital signs: Vital Signs Temp 98.1 F 02/12/19 11:46 Pulse 70 02/12/19 11:46 Resp 18 02/12/19 11:46 BP 111/67 02/12/19 11:46 Pulse Ox 96 02/12/19 11:46 Intake & Output 02/11/19 02/12/19 02/12/19 18:59 06:59 18:59 Intake Total 95.679 136.659 137.85 Output Total 2300 900 Balance -2204.321 -763.341 137.85 Weight 97.5 kg Intake: Intake, IV Titration 95.679 136.659 137.85 Amount Heparin Sod,Pork in 0.45% 95.679 136.659 137.85 NaCl 25,000 unit In 0.45 % NaCl 1 250ml.bag @ 18 UNITS/KG/HR 17.309 mls/hr IV .[id number] [facility] Rx#: [id number] Output: Urine 2300 900 Other: # Voids 1 1 - Exam GENERAL: The patient is alert and oriented x3, not in any acute distress. Well developed, well nourished. HEENT: Pupils are round and equally reacting to light. EOMI. No scleral icterus. No conjunctival pallor. Normocephalic, atraumatic. No pharyngeal erythema. No thyromegaly. CARDIOVASCULAR: S1 and S2 present. No murmurs, rubs, or gallops. PULMONARY: Chest is clear to auscultation, no wheezing or crackles. ABDOMEN: Soft, nontender, nondistended, normoactive bowel sounds. No palpable organomegaly. MUSCULOSKELETAL: No joint swelling or deformity. EXTREMITIES: No cyanosis, clubbing, or pedal edema. NEUROLOGICAL: Gross neurological examination did not reveal any focal deficits. SKIN: No rashes. 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 Continue with anticoagulation and switched to oral therapy. Follow-up recommendation from hematology and cardiology team. Labs and medication were reviewed.. Continue same treatment. Continue with symptomatic treatment. Resume home medication. Monitor lytes and vitals. DVT and GI prophylaxis. Further recommendations of the clinical course of the patient DVT prophylaxis: On anticoagulation GI Prophylaxis: Protonix Prognosis is guarded
[2019-02-13] MEDS: PANTOPRAZOLE 40 MG TABLET PO SCH (06:19)
[2019-02-13 08:09] LABS: Basophils # (A) 0.1 k/uL (0-0.2); Basophils % (A) 1 %; Eosinophils # (A) 0.2 k/uL (0-0.7); Eosinophils % (A) 3 %; HCT 44.9 % (34.0-46.0); Lymphocytes # (A) 3.3 k/uL (1.0-4.8); Lymphocytes % (A) 44 %; MCH 28.8 pg (25.0-35.0); MCHC 31.3 g/dL (31.0-37.0); MCV 92.2 fL (80.0-100.0); Mean Platelet Volume 6.4; Monocytes # (A) 0.5 k/uL (0-1.0); Monocytes % (A) 7 %; Neutrophils # (A) 3.2 k/uL (1.3-7.7); Neutrophils % (A) 43 %; Platelet Count 311 k/uL (150-450); RBC 4.87 m/uL (3.80-5.40); RDW 13.4 % (11.5-15.5); WBC 7.4 k/uL (3.8-10.6)
[2019-02-13 08:33] LABS: Calcium 9.6 mg/dL (8.4-10.2); Potassium 4.5 mmol/L (3.5-5.1)
[2019-02-13] MEDS: FLUTICASONE 44 MCG INHALER INHALATION SCH (08:38)
[2019-02-13] MEDS: APIXABAN 5 MG TAB PO SCH (09:43)
[2019-02-13] MEDS: CHOLECALCIFEROL 1,000 UNIT TAB PO SCH (09:44)
[2019-02-13] MEDS: LORATADINE 10 MG TAB PO SCH (09:44)
[2019-02-13 10:01] VITALS: BP 106/68; PULSE 78; RESP 18; TEMP 98.1
--- NOTE | 2019-02-13 10:57 | P.DS ---
Providers Date of admission: 02/10/19 17:05 Attending physician: Fifi Mcginnis Consults: 02/10/19 17:37 Consult Physician Routine Consulting Provider: Kamlesh Rodriguez Consult Reason/Comments: dvt Do you want consulting provider notified?: Yes 02/11/19 15:02 Consult Physician Routine Consulting Provider: Valarie Bender Consult Reason/Comments: chf Do you want consulting provider notified?: Yes Primary care physician: Physician Nonstaff Hospital Course: Diagnoses: Recurrent Left lower extremity deep venous thrombosis Acute right side pulmonary embolism Fatty liver History of asthma, not in active tissue History of GERD, not active tissue History of thyroid nodule, follow-up as an outpatient Hospital course: This is a pleasant 53 years old female with past medical history of provoked DVT and pulmonary embolism, asthma, GERD, thyroid nodule, presents with signs and symptoms of left leg deep venous thrombosis and pulmonary embolism. Patient was started on heparin drip, she has been evaluated by hematology and cardiology team for evidence of pulmonary congestion on chest x-ray. Echocardiogram was ordered. Patient is hemodynamically stable. Mild leukocytosis is improving from 13.9 down to normal at 7.4K. Patient was started on Eliquis 10 mg for 7 days followed by 5 mg twice a day thereafter. Her co-pay for Eliquis is $20 per month, confirmed with social work instructor and patient informed and she agrees with it. Patient states that she has chronic discomfort in her right upper quadrant for 2 years, Liver ultrasound: Fatty infiltration of the liver. Echo showing ejection fraction of 60-65% with no pericardial effusion. Patient showed interval improvement and her leg pain and respiratory symptoms are improved, on the day of discharge patient denies dyspnea and or chest pain. No change in urine or bowel habits. No nausea vomiting. She is alert and awake and she is walking normally. Patient she is was visiting to [place] and she is going back to [place] upon discharge, with her . As per recommendation of the veterinary medicine scientist she will need hypercoagulable workup as an outpatient, she might need aspirating after that. Also patient is recommended to have repeat CAT scan of the thorax and d-dimer and a 3-4 months. Please refer to the hematology note for more details. Patient was informed about this recommendation and she stated she was going to follow up with veterinary medicine scientist at [place]. And she told me she already has her appointment with her PCP in one week. Patient was referred to be discharged earlier today Patient was cleared for discharge by both cardiology and hematology team Problems and management plan were discussed with the patient and he verbalized understanding and acceptance Patient was found stable and can be discharged home however he needs follow-up as an outpatient. Patient was instructed to follow up with her PCP and veterinary medicine scientist in 1 week. Patient agrees and she said she is going to call and make appointment with her doctors at [facility]. Patient told me she has appointment with her PCP this coming Tuesday, and they are aware to refer her to veterinary medicine scientist Gen: patient is a AAOx3, no distress CVS: S1-S2, RRR, no murmur Lungs: B/L CTA, no wheezing Abdomen: soft, no distention, no tenderness, positive bowel sounds Extremity: no leg edema or induration Time spent more than 35 minutes Patient Condition at Discharge: Stable Plan - Discharge Summary Discharge Rx Participant: Yes New Discharge Prescriptions: No Action Levalbuterol Hfa Inhaler [Xopenex Hfa Inhaler] 1 puff INHALATION Q6HR PRN PRN Reason: Shortness Of Breath Omeprazole Magnesium [PriLOSEC OTC] 20 mg PO DAILY Cholecalciferol (Vitamin D3) [Vitamin D3] 2,000 unit PO DAILY Cetirizine HCl [Zyrtec] 10 mg PO DAILY Beclomethasone Dipropionate [Qvar 40 mcg Redihaler] 2 puff INHALATION RT-BID Discharge Medication List Beclomethasone Dipropionate [Qvar 40 mcg Redihaler] 2 puff INHALATION RT-BID 02/10/19 [History] Cetirizine HCl [Zyrtec] 10 mg PO DAILY 02/10/19 [History] Cholecalciferol (Vitamin D3) [Vitamin D3] 2,000 unit PO DAILY 02/10/19 [History] Levalbuterol Hfa Inhaler [Xopenex Hfa Inhaler] 1 puff INHALATION Q6HR PRN 02/10/19 [History] Omeprazole Magnesium [PriLOSEC OTC] 20 mg PO DAILY 02/10/19 [History] Follow up Appointment(s)/Referral(s): Nonstaff,Physician [Primary Care Provider] - 1-2 days (Patient requesting to follow up with primary provider in [place], already referred to veterinary medicine scientist.) Patient Instructions/Handouts: Pulmonary Embolism (DC), Safe Use of Anticoagulants (DC) Activity/Diet/Wound Care/Special Instructions: Eliquis filled in [facility] - delivered to room already.
--- NOTE | 2019-02-13 13:08 | P.PN ---
Subjective Progress Note Date: 02/13/19 This is a pleasant 53-year-old female with history of prior pulmonary embolism several years ago, at which time she was on control pills, she does have a history of asthma, denies any hypertension, no diabetes, no hyperlipidemia, she's a nonsmoker. She recently had taken a trip to [facility], and while there experienced a fall with an injury to her left leg. After arrival home she noticed increased swelling in that leg as well as increased areas of ecchymosis, then became somewhat short of breath, she came to the hospital then for further evaluation and treatment. At tibia fibula x-ray was negative. A venous duplex study was performed of the left lower extremity which was positive for DVT within the posterior tibial veins. CTA of the chest showed multiple small right lower lobe pulmonary embolism. Chest x-ray showed borderline cardiomegaly, vascular congestion, small bilateral effusions. An ultrasound of the liver was performed which showed slightly echogenic and h eterogeneous appearance to the liver suggesting nonspecific hepatocellular disease or fatty infiltration, some artifact along the gallbladder wall suggesting adenotome myelomatosis. No cholelithiasis or acute cholecystitis noted. EKG shows normal sinus rhythm with no acute changes. Blood pressure 110/70 with a heart rate in the 70s, 97% on room air. White blood cell count 8.9 on admission, 13.9 this morning, hemoglobin 13.1, platelet count 292. Sodium 144, potassium 4.5, BUN 18 and creatinine 1.0. Troponins were negative 3. 02/13 2019 Patient was seen and examined this morning, feels well, no chest discomfort, breathing is stable. Echocardiogram with Doppler study revealed a normal left ventricular systolic function. RVSP 21.66. Hemodynamically stable. From cardiology's perspective she may be able to be discharged home today. Objective - Vital Signs Vital signs: Vital Signs Temp 98.1 F 02/13/19 08:00 Pulse 78 02/13/19 08:00 Resp 18 02/13/19 08:00 BP 106/68 02/13/19 08:00 Pulse Ox 97 02/13/19 08:00 Intake & Output 02/12/19 02/13/19 02/13/19 18:59 06:59 18:59 Intake Total 497.85 240 Output Total 1600 400 Balance -1102.15 -400 240 Weight 96.5 kg Intake: Intake, IV Titration 137.85 Amount Heparin Sod,Pork in 0.45% 137.85 NaCl 25,000 unit In 0.45 % NaCl 1 250ml.bag @ 18 UNITS/KG/HR 17.309 mls/hr IV .[id number] [facility] Rx#: [id number] Oral 360 240 Output: Urine 1600 400 Other: # Voids 2 1 - Exam PHYSICAL EXAMINATION: GENERAL: 53-year-old female in no acute distress at the time of my examination HEENT: Head is atraumatic, normocephalic. Pupils equal, round. Sclera anicteric. Conjunctiva are clear. Mucous membranes of the mouth are moist. Neck is supple. There is no elevated jugular venous pressure. No carotid bruit is heard. HEART EXAMINATION: Heart S1, S2 normal. No murmur or gallop heard. CHEST EXAMINATION: Lungs are clear to auscultation and precussion. No chest wall tenderness is noted on palpation or with deep breathing. ABDOMEN: Soft, nontender. Bowel sounds are heard. No organomegaly noted. EXTREMITIES:[ 2+ peripheral pulses with trace edema noted to the left lower extremity with evidence of ecchymosis at the ankle area and up below the knee on the left leg NEUROLOGIC patient is awake, alert and oriented 3 . - Labs CBC & Chem 7: 02/13/19 07:21 02/13/19 07:21 Labs: Abnormal Lab Results - Last 24 Hours (Table) 02/13/19 Range/Units 07:21 Carbon Dioxide 32 H (22-30) mmol/L Assessment and Plan Plan: Assessment and plan #1 pulmonary embolism with evidence of DVT in the left lower extremity, provoked. #2 history of prior pulmonary embolism #3 asthma Plan Echo cardiac gram with Doppler study revealed a normal left ventricular systolic function. From cardiology's perspective, patient may be able to be discharged home today. P note has been reviewed, I agree with a documented findings and plan of care. Patient was seen and examined.
== END 2019-02-13 11:14 | disposition home or self-care (01) | DRG 299 ==
LOC: EC 12:19 → 3SCARD 17:05
PROVIDERS: ADMIT Hospitalist; ATTEND Hospitalist
DX: I82.442 Acute embolism and thrombosis of left tibial vein (principal); I26.99 Other pulmonary embolism without acute cor pulmonale; D72.829 Elevated white blood cell count, unspecified; E03.9 Hypothyroidism, unspecified; I50.9 Heart failure, unspecified; J45.909 Unspecified asthma, uncomplicated; K21.9 Gastro-esophageal reflux disease without esophagitis; K76.0 Fatty (change of) liver, not elsewhere classified; Z79.51 Long term (current) use of inhaled steroids; Z86.711 Personal history of pulmonary embolism; Z86.718 Personal history of other venous thrombosis and embolism; Z88.2 Allergy status to sulfonamides; Z88.8 Allergy status to other drugs, medicaments and biological substances; Z88.6 Allergy status to analgesic agent; Z91.041 Radiographic dye allergy status; Z91.010 Allergy to peanuts; Z88.0 Allergy status to penicillin; Z91.013 Allergy to seafood; Z79.899 Other long term (current) drug therapy; Z91.81 History of falling; Z80.9 Family history of malignant neoplasm, unspecified; Z83.2 Family history of diseases of the blood and blood-forming organs and certain disorders involving the immune mechanism; E04.1 Nontoxic single thyroid nodule
CPT/HCPCS: 36415; 71045; 71275; 76705; 80048; 80053; 83880; 84484; 85025; 85610; 85730; 93005; 93306; 96361; 96365; 96375; 96376; 99285